=== PATIENT | male | born 1925 | race Caucasian/White ===

== ENCOUNTER 2017-03-23 10:50 | Emergency (ER) | payer OTHER ==
[~2017-03-23] VITALS: Ht 167.6 cm; Wt 66.7 kg
[2017-03-23 10:56] VITALS: TEMP 36.4; Ht 167.6 cm; Wt 66.7 kg
[2017-03-23] MEDS ORDERED: XYLOCAINE 1%/SOD BICARB 20 ML VIAL INFIL ONE (11:30)
--- NOTE | 2017-03-23 12:01 | EMERGENCY ROOM VISIT NOTE ---
ED Visit Note First contact with patient: 11:13 CHIEF COMPLAINT: Right fifth Finger laceration HISTORY OF PRESENT ILLNESS: This 89-year-old male patient cut the right fifth finger on a piece of glass just prior to arrival. The bleeding has stopped. Denies weakness or numbness of the finger. The patient states he is able to flex and extend his finger but if he flexes it at this time able bleed. The patient is right-hand dominant. The patient's tetanus status is up-to-date. The patient is not on any blood thinners. REVIEW OF SYSTEMS: 6 system review was performed and was negative unless stated otherwise in history of present illness. PMH: The patient is healthy; GERD, prostate surgery, appendectomy SOCIAL HISTORY: Patient lives with his son and family. The patient denies any tobacco use but admits to rare alcohol use. PHYSICAL EXAM: Vital Signs: Were reviewed Reviewed Nurse's notes. GEN.: 89-year -old white male appears in no acute distress. MENTAL Status: Alert and oriented 3. RIGHT FIFTH FINGER: There is a 1.5 cm long laceration on the dorsal aspect of the PIP joint. The edges gape apart with traction. There is no foreign material in the wound and it looks clean. There is no bleeding. No deep structures such as tendons or nerves are seen in the base of the wound. Extension of the finger is full and strong. EMERGENCY DEPARTMENT COURSE: The patient was evaluated. Wound Repair: Complexity: Basic. Verbal consent was obtained after the risks and benefits were explained, including but not limited to bleeding, scarring, infection, pain, and bone/joint /nerve damage. The skin was prepped with betadine and a sterile field set. The wound was anesthetized with 2.0ml of 1% buffered lidocaine. With direct pressure the bleeding subsided. Copious irrigation was performed using sterile saline. The wound was explored for foreign bodies and none found. Debridement was not performed. The wound edges were approximated using 5-0 Ethilon with 5 simple interrupted sutures. Hemostasis and excellent approximation was achieved. Antibacterial ointment and a sterile dressing applied. Detailed wound care instructions and signs and symptoms of infection reviewed with the patient. No complications and the patient tolerated the procedure well. The patient was independently evaluated by Dr. Rico who agrees with treatment plan. DIAGNOSIS: 1.5 cm right fifth Finger laceration DISCHARGE INSTRUCTIONS & TREATMENT: Keep wound clean and dry. No water on the area for 12-24 hrs then no soaking until sutures removed. Do not allow any crusting or dried blood to accumulate on sutures. If this occurs, use a 1:1 solution of hydrogen peroxide/water on a Q-tip to clean the wound. Use an antibiotic ointment for 3-4 days, then let wound dry. Suture removal in 10-12 days. Follow up sooner for any signs of infection (increasing redness, swelling , drainage). Ice and elevate for swelling and pain. Tylenol 650 mg every 6 hrs for pain. Wear finger splint except for bathing until sutures are removed or if the splint is intolerable. Current/Historical Medications Scheduled Cholecalciferol (Vitamin D 400 Iu), 400 INTER.UNIT PO BID Cyanocobalamin (Vitamin B-12), BID Ferrous Sulfate (Iron), 1 TAB PO DAILY Pantoprazole (Protonix), 40 MG PO DAILY Propafenone Hcl (Propafenone Hcl), 150 MG PO BID Allergies Coded Allergies: No Known Allergies (Unverified , 03/23/17) Vital Signs Date Time Temp Pulse Resp B/P (MAP) Pulse Ox O2 Delivery O2 Flow Rate FiO2 03/23/17 10:56 36.4 86 20 123/81 96 Room Air Medications Administered Medications (Trade) Dose Ordered Sig/Prosper Route Start Time Stop Time Status Last Admin Dose Admin Lidocaine HCl (Buffered Lidocaine 1% Inj) 20 ml NOW ONCE INFIL 03/23/17 11:30 03/23/17 11:31 DC 03/23/17 11:27 20 ML Departure Information Referrals Philipp Beaulieu MD (PCP) Patient Instructions My [facility]
--- NOTE | 2017-03-23 12:20 | EMERGENCY ROOM VISIT NOTE ---
ED Visit Note First contact with patient: 11:13 I have seen and examined this patient with Yun Diggs and generally agree with the treatment plan as discussed. Current/Historical Medications Scheduled Cholecalciferol (Vitamin D 400 Iu), 400 INTER.UNIT PO BID Cyanocobalamin (Vitamin B-12), BID Ferrous Sulfate (Iron), 1 TAB PO DAILY Pantoprazole (Protonix), 40 MG PO DAILY Propafenone Hcl (Propafenone Hcl), 150 MG PO BID Allergies Coded Allergies: No Known Allergies (Unverified , 03/23/17) Vital Signs Date Time Temp Pulse Resp B/P (MAP) Pulse Ox O2 Delivery O2 Flow Rate FiO2 03/23/17 10:56 36.4 86 20 123/81 96 Room Air Medications Administered Medications (Trade) Dose Ordered Sig/Prosper Route Start Time Stop Time Status Last Admin Dose Admin Lidocaine HCl (Buffered Lidocaine 1% Inj) 20 ml NOW ONCE INFIL 03/23/17 11:30 03/23/17 11:31 DC 03/23/17 11:27 20 ML Departure Information Impression Primary Impression: Laceration of finger of right hand Dispostion Home / Self-Care Condition GOOD Referrals Philipp Beaulieu MD (PCP) Forms HOME CARE DOCUMENTATION FORM, IMPORTANT VISIT INFORMATION Patient Instructions My [facility] Additional Instructions Keep wound clean and dry. No water on the area for 12-24 hrs then no soaking until sutures removed. Do not allow any crusting or dried blood to accumulate on sutures. If this occurs, use a 1:1 solution of hydrogen peroxide/water on a Q-tip to clean the wound. Use an antibiotic ointment for 3-4 days, then let wound dry. Suture removal in 10-12 days. Follow up sooner for any signs of infection (increasing redness, swelling, drainage). Ice and elevate for swelling and pain. Tylenol 650 mg every 6 hrs for pain. Wear finger splint except for bathing until sutures are removed or if the splint is intolerable.
[2017-03-23 12:41] VITALS: BP 142/69; PULSE 105; O2SAT 98
[2017-04-19] MEDS ORDERED: FERR1TAB23 PO (11:12)
[2017-04-19] MEDS ORDERED: PROP150T PO (11:12)
[2017-04-19] MEDS ORDERED: PANT40TA PO (11:12)
[2017-04-19] MEDS ORDERED: CYAN100048 (11:12)
[2017-04-19] MEDS ORDERED: CHOL400C7 PO (11:12)
== END 2017-03-23 12:43 | disposition home or self-care (01) ==
LOC: C.EDB 10:51 → C.EDD 12:43
DX: S61.216A Laceration without foreign body of right little finger without damage to nail, initial encounter (principal); W45.8XXA Other foreign body or object entering through skin, initial encounter

== ENCOUNTER 2017-04-03 09:00 | Emergency (ER) | payer OTHER ==
[~2017-04-03] VITALS: Ht 170.2 cm; Wt 68.5 kg
[2017-04-03 09:04] VITALS: BP 143/84; TEMP 36.4; O2SAT 99; Ht 170.2 cm; Wt 68.5 kg
--- NOTE | 2017-04-03 09:35 | EMERGENCY ROOM VISIT NOTE ---
ED Visit Note First contact with patient: 09:11 CHIEF COMPLAINT: Suture removal This patient returns to the ED today for removal of sutures that were placed 10 days ago. There has been no swelling, redness, or drainage from the wound. The patient feels like the laceration is healing well. REVIEW OF SYSTEMS: Head: No headache, injury or neck pain. Skin: No rash, new lesions, or masses. General: No fever or chills, fatigue, loss of appetite , or significant recent weight gain or loss. PMH: The patient is healthy; there is no significant medical or surgical history. SOCIAL HISTORY: Patient lives at home. PHYSICAL EXAM: Vital Signs: Reviewed Nurse's notes. There is a sutured wound on the right fifth finger with no signs of infection. There is no erythema, swelling, or tenderness. EMERGENCY DEPARTMENT COURSE: The sutures were removed without any difficulty and there was no separation of the wound edges. Current/Historical Medications Scheduled Cholecalciferol (Vitamin D 400 Iu), 400 INTER.UNIT PO BID Cyanocobalamin (Vitamin B-12), BID Ferrous Sulfate (Iron), 1 TAB PO DAILY Pantoprazole (Protonix), 40 MG PO DAILY Propafenone Hcl (Propafenone Hcl), 150 MG PO BID Allergies Coded Allergies: No Known Allergies (Unverified , 03/23/17) Vital Signs Date Time Temp Pulse Resp B/P (MAP) Pulse Ox O2 Delivery O2 Flow Rate FiO2 04/03/17 09:50 88 04/03/17 09:04 36.4 78 18 143/84 99 Room Air Departure Information Impression Primary Impression: Encounter for removal of sutures Dispostion Home / Self-Care Condition GOOD Referrals Philipp Beaulieu MD (PCP) Patient Instructions ED Wound Check Sutr Remove No Infec, My [facility] Additional Instructions Keep area clean and dry as it continues to heal. You may apply antibiotic ointment and a Band-Aid for the next 2-3 days as needed. You may resume normal activities. Follow-up with your PCP as needed.
[2017-04-03 09:50] VITALS: PULSE 88
[2017-04-19] MEDS ORDERED: PROP150T PO (11:12)
[2017-04-19] MEDS ORDERED: PANT40TA PO (11:12)
[2017-04-19] MEDS ORDERED: CYAN100048 (11:12)
[2017-04-19] MEDS ORDERED: CHOL400C7 PO (11:12)
[2017-04-19] MEDS ORDERED: FERR1TAB23 PO (11:12)
== END 2017-04-03 09:51 | disposition home or self-care (01) ==
LOC: C.EDB 09:01 → C.EDA 09:51
DX: S61.216D Laceration without foreign body of right little finger without damage to nail, subsequent encounter (principal); X58.XXXD Exposure to other specified factors, subsequent encounter

== ENCOUNTER 2017-04-19 20:32 | Emergency (ER) | payer OTHER ==
[~2017-04-19] VITALS: Ht 170.2 cm; Wt 68.7 kg
[~2017-04-19 20:32] MED LIST: CHOL400C7 PO; CYAN100048; FERR1TAB23 PO; PANT40TA PO; PROP150T PO
[2017-04-19 20:37] VITALS: TEMP 36.5; Ht 170.2 cm; Wt 68.7 kg
[2017-04-19] MEDS ORDERED: ASPI81TA28 PO (22:15)
[2017-04-19 22:24] LABS: BASO % 0.4 %; BASO ABS # 0.02 K/uL (0-0.2); COMPLETE YES; EOS % 1.6 %; IG% 0.4 %; LYMPH % 40.2 %; LYMPH ABS # 2.29 K/uL (1.2-3.4); MEAN CORPUSCULAR HGB CONC 33.3 g/dl (32-36); MEAN PLATELET VOLUME 9.8 fL (7.4-10.4); MONO % 9.1 %; NEUT % 48.3 %; PLATELET COUNT 171 K/uL (130-400); RED BLOOD COUNT 3.94 M/uL (4.7-6.1); WHITE BLOOD COUNT 5.69 K/uL (4.8-10.8)
[2017-04-19 22:41] LABS: PROTHROMBIN TIME (PATIENT) 10.9 SECONDS (9.0-12.0)
--- NOTE | 2017-04-19 22:44 | DIAGNOSTIC IMAGING REPORT ---
SINGLE VIEW CHEST CLINICAL HISTORY: Atypical chest pain. FINDINGS: An AP, portable, upright chest radiograph is obtained. No prior studies are available for comparison at the time of dictation. The examination is degraded by portable technique and patient rotation. The heart is enlarged and there is atherosclerotic calcification of the thoracic aorta. The pulmonary vasculature is noncongested. Nonspecific interstitial thickening is noted. There is no airspace consolidation, large pleural effusion, or pneumothorax. The skeletal structures are osteopenic. The bony thorax is grossly intact. IMPRESSION: Cardiomegaly with no acute cardiopulmonary abnormality. Electronically signed by: Tripp Beltran M.D. 04/19/2017 10:43 PM Dictated Date/Time: 04/19/2017 10:42 PM
[2017-04-19 22:45] LABS: ALT/SGPT 18 U/L (12-78); AST/SGOT 16 U/L (15-37); BLOOD UREA NITROGEN 21 mg/dl (7-18); BUN/CREATININE RATIO 16.2 (10-20); CALCIUM 8.7 mg/dl (8.5-10.1); CARBON DIOXIDE 27 mmol/L (21-32); CHLORIDE 108 mmol/L (98-107); GLUCOSE 105 mg/dl (70-99); POTASSIUM 4.2 mmol/L (3.5-5.1); SODIUM 142 mmol/L (136-145)
[2017-04-19 22:50] LABS: ALKALINE PHOSPHATASE 48 U/L (45-117); CKMB/CK RATIO 2.5 (0-3.0)
[2017-04-19 23:01] VITALS: O2SAT 95
[2017-04-19 23:05] VITALS: BP 142/89; PULSE 64; O2SAT 17
[2017-04-19] MEDS ORDERED: SUCRALFATE 1 GM TAB PO STA (23:05)
[2017-04-19] MEDS ORDERED: FAMOTIDINE 20 MG TAB PO STA (23:05)
[2017-04-19] MEDS ORDERED: GI COCKTAIL PO STA (23:05)
[2017-04-19] MEDS ORDERED: LIDOCAINE HCL 2% VISC SOLN 20 ML UDC ONE (23:10)
[2017-04-19] MEDS ORDERED: ALUMINUM/MAGNESIUM SUSP 30 ML UDC ONE (23:10)
--- NOTE | 2017-04-20 00:34 | EMERGENCY ROOM VISIT NOTE ---
History Report prepared by Richard: Sadaf Zaman Under the Supervision of: Dr. Jose Luis Rico M.D. First contact with patient: 21:17 Chief Complaint: CHEST PAIN Stated Complaint: CHEST PAIN Nursing Triage Summary: cp across chest since 1945 History of Present Illness The patient is an 89 year old male who presents to the Emergency Room with complaints of intermittent chest pain starting 3 hours ago. He was sitting down when he started having chest pain across his chest. He describes it as sharp and stabbing. He rates his discomfort as a 4/10 in severity. The pain lasts for 10 minutes at a time. The pain worsens with exertion. It improved after he sat up. He ate a chicken sandwich 2 hours before the pain started. He does not have any other complaints. He has a history of mitral valve prolapse. He denies any history of other cardiac problems. He had a stress test within the last year which was normal. He recently had an echocardiogram which showed that his mitral valve prolapse had worsened to moderate. Source of History: patient Onset: 3 hours ago Position: chest Symptom Intensity: 4/10 Quality: sharp, stabbing Timing: intermittent Modifying Factors (Worsening): exertion Modifying Factors (Relieving): other (sitting up) Review of Systems See HPI for pertinent positives & negatives. A total of 10 systems reviewed and were otherwise negative. Past Medical & Surgical Medical Problems: (1) Mitral valve prolapse Family History Lung disease Social History Smoking Status: Never Smoker Marital Status: Occupation Status: retired Current/Historical Medications Scheduled Aspirin (Aspirin Ec), 81 MG PO DAILY Cholecalciferol (Vitamin D 400 Iu), 400 INTER.UNIT PO BID Cyanocobalamin (Vitamin B-12), BID Ferrous Sulfate (Iron), 1 TAB PO DAILY Pantoprazole (Protonix), 40 MG PO DAILY Propafenone Hcl (Propafenone Hcl), 150 MG PO BID Allergies Coded Allergies: No Known Allergies (Unverified , 03/23/17) Physical Exam Vital Signs Date Time Temp Pulse Resp B/P (MAP) Pulse Ox O2 Delivery O2 Flow Rate FiO2 04/19/17 23:05 64 20 142/89 17 Room Air 04/19/17 23:01 95 Room Air 04/19/17 21:37 64 04/19/17 20:37 36.5 92 18 138/85 91 Room Air Physical Exam GENERAL: Patient is a healthy-appearing well-nourished male HEAD: Normocephalic atraumatic EYES: Ocular movements intact pupils equal and react to light OROPHARYNX mucous membranes are moist no exudates present no erythema or edema present NECK: Supple no nuchal rigidity CHEST: Good equal expansion LUNGS: Clear and equal to auscultation CARDIAC: Normal S1 and S2 ABDOMEN: Soft nontender no guarding BACK: No CVA tenderness EXTREMITIES: No pain upon palpation normal muscle strength in all groups no clubbing cyanosis or edema NEURO: Patient is following commands and answering questions appropriately. Alert and oriented x3 Cranial Nerves 2-12 grossly intact Medical Decision & Procedures ER Provider Diagnostic Interpretation: X-ray results as stated below per interpretation by me and the radiologist: SINGLE VIEW CHEST CLINICAL HISTORY: Atypical chest pain. FINDINGS: An AP, portable, upright chest radiograph is obtained. No prior studies are available for comparison at the time of dictation. The examination is degraded by portable technique and patient rotation. The heart is enlarged and there is atherosclerotic calcification of the thoracic aorta. The pulmonary vasculature is noncongested. Nonspecific interstitial thickening is noted. There is no airspace consolidation, large pleural effusion, or pneumothorax. The skeletal structures are osteopenic. The bony thorax is grossly intact. IMPRESSION: Cardiomegaly with no acute cardiopulmonary abnormality. Electronically signed by: Tripp Beltran M.D. 04/19/2017 10:43 PM Dictated Date/Time: 04/19/2017 10:42 PM Laboratory Results 04/19/17 21:35 Red Blood Count 3.94, Mean Corpuscular Volume 99.0, Mean Corpuscular Hemoglobin 33.0, Mean Corpuscular Hemoglobin Concent 33.3, Mean Platelet Volume 9.8, Neutrophils (%) (Auto) 48.3, Lymphocytes (%) (Auto) 40.2, Monocytes (%) (Auto) 9.1, Eosinophils (%) (Auto) 1.6, Basophils (%) (Auto) 0.4, Neutrophils # (Auto) 2.75, Lymphocytes # (Auto) 2.29, Monocytes # (Auto) 0.52, Eosinophils # (Auto) 0.09, Basophils # (Auto) 0.02 04/19/17 21:35 Test 04/19/17 21:35 White Blood Count 5.69 K/uL (4.8-10.8) Red Blood Count 3.94 M/uL (4.7-6.1) Hemoglobin 13.0 g/dL (14.0-18.0) Hematocrit 39.0 % (42-52) Mean Corpuscular Volume 99.0 fL (80-100) Mean Corpuscular Hemoglobin 33.0 pg (25-34) Mean Corpuscular Hemoglobin Concent 33.3 g/dl (32-36) Platelet Count 171 K/uL (130-400) Mean Platelet Volume 9.8 fL (7.4-10.4) Neutrophils (%) (Auto) 48.3 % Lymphocytes (%) (Auto) 40.2 % Monocytes (%) (Auto) 9.1 % Eosinophils (%) (Auto) 1.6 % Basophils (%) (Auto) 0.4 % Neutrophils # (Auto) 2.75 K/uL (1.4-6.5) Lymphocytes # (Auto) 2.29 K/uL (1.2-3.4) Monocytes # (Auto) 0.52 K/uL (0.11-0.59) Eosinophils # (Auto) 0.09 K/uL (0-0.5) Basophils # (Auto) 0.02 K/uL (0-0.2) RDW Standard Deviation 47.8 fL (36.4-46.3) RDW Coefficient of Variation 13.2 % (11.5-14.5) Immature Granulocyte % (Auto) 0.4 % Immature Granulocyte # (Auto) 0.02 K/uL (0.00-0.02) Prothrombin Time 10.9 SECONDS (9.0-12.0) Prothromb Time International Ratio 1.0 (0.9-1.1) Anion Gap 7.0 mmol/L (3-11) Est Creatinine Clear Calc Drug Dose 36.0 ml/min Estimated GFR () 56.1 Estimated GFR (Non- 48.4 BUN/Creatinine Ratio 16.2 (10-20) Calcium Level 8.7 mg/dl (8.5-10.1) Total Bilirubin 0.4 mg/dl (0.2-1) Direct Bilirubin 0.1 mg/dl (0-0.2) Aspartate Amino Transf (AST/SGOT) 16 U/L (15-37) Alanine Aminotransferase (ALT/SGPT) 18 U/L (12-78) Alkaline Phosphatase 48 U/L (45-117) Total Creatine Kinase 91 U/L (39-308) Creatine Kinase MB 2.3 ng/ml (0.5-3.6) Creatine Kinase MB Ratio 2.5 (0-3.0) Troponin I < 0.015 ng/ml (0-0.045) Total Protein 6.9 gm/dl (6.4-8.2) Albumin 3.9 gm/dl (3.4-5.0) Lipase 169 U/L (73-393) Labs reviewed by ED physician. Medications Administered Medications (Trade) Dose Ordered Sig/Prosper Route Start Time Stop Time Status Last Admin Dose Admin Famotidine (Pepcid Tab) 20 mg NOW STAT PO 04/19/17 23:05 04/19/17 23:06 DC 04/19/17 23:13 20 MG Sucralfate (Carafate Tab) 1 gm NOW STAT PO 04/19/17 23:05 04/19/17 23:06 DC 04/19/17 23:12 1 GM Lidocaine HCl (Viscous Lidocaine 2% Soln) 20 ml STK-MED ONCE .ROUTE 04/19/17 23:10 04/19/17 23:11 DC 04/19/17 23:13 20 ML Al Hydroxide/Mg Hydroxide (Maalox Susp) 30 ml STK-MED ONCE .ROUTE 04/19/17 23:10 04/19/17 23:11 DC 04/19/17 23:13 30 ML ECG Indication: chest pain Rate (beats per minute): 68 Rhythm: sinus rhythm Findings: 1st degree AV block, no acute ischemic change, no ectopy ED Course 2216: The student evaluated the patient at this time. We discussed findings, differentials, and treatment plan. 2257: Past medical records reviewed. The patient was evaluated in room C2B. A complete history and physical examination was performed. 2305: Sucralfate 1 gm PO, Famotidine 20 mg PO. 2310: Maalox Susp 30 ml PO, Lidocaine HCl 20 ml PO. 2315: Upon reexamination the patient is resting comfortably. I discussed results and treatment plan with the patient. He verbalizes agreement and understanding. The patient is ready for discharge. Medical Decision Prior records/ancillary studies reviewed. Triage Nursing notes reviewed. Additional history obtained from family. The patient's history was concerning for chest pain. Differential diagnosis: Etiologies such as cardiac ischemia, aortic dissection, pulmonary embolism, pneumonia, pneumothorax, musculoskeletal, infections, pericarditis, myocarditis , esophageal rupture, gastrointestinal, as well as others were entertained. Medication Reconciliation: I attest that I have personally reviewed the patient' s current medication list Blood Pressure Screening: Patient was found to have an elevated blood pressure and was referred to their primary care doctor for recheck and further treatment This is an 89-year-old male who presents emergency Department with positional chest pain. I will note that the patient's chest pain appears to get worse when he reclines. He has a normal CK-MB troponin as well as an EKG that is unchanged from previous. I noted to the patient that this however does not rule out out his heart and recommended that he be admitted for observation however the patient is adamantly refusing this. He was given Pepcid Carafate and a GI cocktail in the emergency Department with improvement in his symptoms. He is going to follow-up with cardiology this week however I stressed the need to return if the past patient's chest pain worsened. Patient was in agreement with the treatment plan. Impression Primary Impression: Chest pain Scribe Attestation The scribe's documentation has been prepared under my direction and personally reviewed by me in its entirety. I confirm that the note above accurately reflects all work, treatment, procedures, and medical decision making performed by me. Departure Information Dispostion Home / Self-Care Referrals Philipp Beaulieu MD (PCP) Jose L Stafford, DO Forms HOME CARE DOCUMENTATION FORM, IMPORTANT VISIT INFORMATION Patient Instructions Chest Pain - [facility] Additional Instructions Follow up with Dr Brody's office this week Return immediatley if you experience chest pain You were found to have an elevated blood pressure today (>120 sytolic or >90 diastolic). Per medicare guidelines, you need to follow up with this blood pressure screening with your Primary Care Physician (PCP). For a new PCP call [phone]. You have been examined and treated today on an emergency basis only. This is not a substitute for, or an effort to provide, complete comprehensive medical care. It is impossible to recognize and treat all injuries or illnesses in a single emergency department visit. It is therefore important that you follow up closely with Dr Beaulieu. Call as soon as possible for an appointment. Thank you for your time and consideration. I look forward to speaking with you again soon. Please don't hesitate to call us if you have any questions. Problem Qualifiers Primary Impression: Chest pain Chest pain type: unspecified Qualified Codes: R07.9 - Chest pain, unspecified
== END 2017-04-19 23:26 | disposition home or self-care (01) ==
LOC: C.EDB 20:33 → C.EDC 23:26
DX: R07.9 Chest pain, unspecified (principal); I34.1 Nonrheumatic mitral (valve) prolapse; Z83.6 Family history of other diseases of the respiratory system; Z79.82 Long term (current) use of aspirin; Z79.899 Other long term (current) drug therapy